=== PATIENT | male | born 2000 | race Caucasian/White ===

== ENCOUNTER 2021-04-23 13:55 | Emergency (ER) | payer OTHER ==
[~2021-04-23] VITALS: Ht 177.8 cm; Wt 84.0 kg
[2021-04-23 14:16] VITALS: BP 169/80
[2021-04-23] MEDS ORDERED: ONDANSETRON PF 4 MG/2 ML VIAL. IVP ONE (14:45)
[2021-04-23] MEDS ORDERED: ONDANSETRON ODT 4 MG TAB.RAPDIS PO ONE (15:00)
[2021-04-23] MEDS ORDERED: ONDANSETRON ODT 4 MG TAB.RAPDIS ONE (15:02)
[2021-04-23] MEDS ORDERED: HYDROcodone/APAP 5/325MG 1 TAB TABLET PO ONE (15:15)
--- NOTE | 2021-04-23 15:49 | PHYS DOC ---
Past History Past Surgical History: Other (JO ANN TORRES APRN) General Adult EDM: Chief Complaint: NAUSEA/VOMITING/DIARRHEA HPI: HPI: Patient is a 20-year-old male who presents with nausea, right side arm and leg pain. Patient states that the pain started on after he received his Covid vaccination. Patient denies change in sensation or strength. Denies fever. (JO ANN TORRES APRN) Review of Systems: Review of Systems: Constitutional: Denies fever or chills Eyes: Denies change in visual acuity HENT: Denies nasal congestion or sore throat Respiratory: Denies cough or shortness of breath Cardiovascular: Denies chest pain or edema GI: Denies abdominal pain, nausea, vomiting, bloody stools or diarrhea : Denies dysuria Musculoskeletal: Denies back pain or joint pain Integument: Denies rash Neurologic: Denies headache, focal weakness or sensory changes Endocrine: Denies polyuria or polydipsia Lymphatic: Denies swollen glands Psychiatric: Denies depression or anxiety (JO ANN TORRES APRN) Current Medications: Current Meds: Current Medications Medications (Trade) Dose Ordered Sig/[place] Start Time Stop Time Status Last Admin Dose Admin Acetaminophen/ Hydrocodone Bitart (Lortab 5/325) 1 tab 1X ONCE 04/23/21 15:15 04/23/21 15:16 DC 04/23/21 15:14 1 TAB Ondansetron HCl (Zofran Odt) 4 mg STK-MED ONCE 04/23/21 15:02 04/23/21 15:02 DC Ondansetron HCl (Zofran) 4 mg 1X ONCE 04/23/21 14:45 04/23/21 14:57 DC (JO ANN TORRES APRN) Allergies: Allergies: Allergies Coded Allergies Type Severity Reaction Last Updated Verified No Known Drug Allergies 04/23/21 No (JO ANN TORRES APRN) Physical Exam: PE: Constitutional: Well developed, well nourished, no acute distress, non-toxic appearance. [] HENT: Normocephalic, atraumatic, bilateral external ears normal, oropharynx moist, no oral exudates, nose normal. [] Eyes: PERRLA, EOMI, conjunctiva normal, no discharge. [] Neck: Normal range of motion, no tenderness, supple, no stridor. [] Cardiovascular:Heart rate regular rhythm, no murmur [] Lungs & Thorax: Bilateral breath sounds clear to auscultation [] Abdomen: Bowel sounds normal, soft, no tenderness, no masses, no pulsatile masses. [] Skin: Warm, dry, no erythema, no rash. [] Back: No tenderness, no CVA tenderness. [] Extremities: Left arm tenderness, no cyanosis, no clubbing, ROM intact, no edema. [] Neurologic: Alert and oriented X 3, normal motor function, normal sensory function, no focal deficits noted. [] Psychologic: Affect normal, judgement normal, mood normal. [] (JO ANN TORRES APRN) Current Patient Data: Vital Signs: Vital Signs Date Time Temp Pulse Resp B/P (MAP) Pulse Ox O2 Delivery O2 Flow Rate FiO2 04/23/21 15:14 16 97 04/23/21 14:16 98.2 74 169/80 (JO ANN TORRES APRN) EKG: EKG: [] (JO ANN TORRES APRN) Radiology/Procedures: Radiology/Procedures: [] (JO ANN TORRES APRN) Heart Score: C/O Chest Pain: No Risk Factors: Risk Factors: DM, Current or recent (<one month) smoker, HTN, HLP, family history of CAD, obesity. Risk Scores: Score 0 - 3: 2.5% MACE over next 6 weeks - Discharge Home Score 4 - 6: 20.3% MACE over next 6 weeks - Admit for Clinical Observation Score 7 - 10: 72.7% MACE over next 6 weeks - Early Invasive Strategies (JO ANN TORRES APRN) Course & Med Decision Making: Course & Med Decision Making Pertinent Labs and Imaging studies reviewed. (See chart for details) [] 20-year-old male presents with nausea and right-sided arm and leg tenderness after his vaccine on . Patient denies vomiting or diarrhea. Afebrile. NIH of 0. No change in sensation or strength of extremities. Patient states he has been taking ibuprofen and Tylenol. Discussed with patient that he needs to be taking ibuprofen and Tylenol every 6 hours. Patient given a Zofran here while in the ER and a hydrocodone to help with pain. Patient sent home with nausea medication. Advised patient to call PCP make a follow-up appointment if discomfort continues. Patient states that he understands. Patient is hemodynamically stable, alert and oriented upon disposition. (JO ANN TORRES APRN) Course & Med Decision Making I was the Attending physician on the above date of service of this patient. This patient was evaluated, examined, treated, and dispositioned from the emergency department by the mid-level practitioner. Although I was working at the time , no assistance was requested. Electronically signed, Bj Nesbitt DO (BJ NESBITT DO) Gera Disclaimer: Gera Disclaimer: This electronic medical record was generated, in whole or in part, using a voice recognition dictation system. (JO ANN TORRES APRN) Departure Departure: Impression: Primary Impression: Nausea Disposition: HOME / SELF CARE / HOMELESS Condition: STABLE Referrals: PCP,NO (PCP) Patient Instructions: Nausea, Adult, [id number] Additional Instructions: You were seen in the emergency room for nausea and right-sided arm and leg pain. Please start taking your ibuprofen and Tylenol at home for pain. Also sending you home with nausea medication. If nausea and pain continues please follow-up with your PCP. Return emergency room with worsening symptoms or concerns EMERGENCY DEPARTMENT GENERAL DISCHARGE INSTRUCTIONS Thank you for coming to [facility] (ED) today and trusting us with you care. We trust that you had a positivie experience in our Emergency Department. If you wish to speak to the department management, you may call the director at [phone]. YOUR FOLLOW UP INSTRUCTIONS ARE FOLLOWS: 1. Do you have a private Doctor? If you do not have a private doctor, please ask for a resource list of physicians or clinics that may be able to assist you with follow up care. 2. The Emergency Physician has interpreted your x-rays. The X-Ray specialist will also review them. If there is a change in the findings, you will be notified in 48 hours when at all possible. 3. A lab test or culture has been done, your results will be reviewed and you will be notified if you need a change in treatment. ADDITIONAL INSTRUCTIONS AND INFORMATION: 1. Your care today has been supervised by a physician who is specially trained in emergency care. Many problems require more than one evaluation for a complete diagnosis and treatment. We recommend that you schedule your follow up appointment as recommended to ensure complete treatment of you illness or injury. If you are unable to obtain follow up care and continue to have a problem, or if your condition worsens, we recommend that you return to the ED. 2. We are not able to safely determine your condition over the phone nor are we able to give sound medical advice over the phone. For these safety reasons, if you call for medical advice we will ask you to come to the ED for further evaluation. 3. If you have any questions regarding these discharge instructions please call the ED at [phone]. SAFETY INFORMATION: In the interest of safety, wellness, and injury prevention; we encourage you to wear your sealbelt, if you smoke; quite smoking, and we encourage family to use a protective helmet for bicycling and other sporting events that present an increased risk for head injury. IF YOUR SYMPTOMS WORSEN OR NEW SYMPTOMS DEVELOP, OR YOU HAVE CONCERNS ABOUT YOUR CONDITION; OR IF YOUR CONDITION WORSENS WHILE YOU ARE WAITING FOR YOUR FOLLOW UP APPOINTMENT; EITHER CONTACT YOUR PRIMARY CARE DOCTOR, THE PHYSICIAN WHOSE NAME AND NUMBER YOU WERE GIVEN, OR RETURN TO THE ED IMMEDIATELY. Scripts Ondansetron Hcl (ZOFRAN) 4 Mg Tablet 4 MG PO TID PRN PRN for NAUSEA, #9 TAB Prov: JO ANN TORRES APRN 04/23/21 JO ANN TORRES APRN Apr 23, 2021 15:48 JB NESBITT DO Apr 24, 2021 07:26
[2021-04-23] MEDS ORDERED: ONDA4TAB7 PO (15:54)
== END 2021-04-23 15:55 | disposition home or self-care (01) ==
LOC: ER 13:55
DX: R11.0 Nausea (principal); M79.601 Pain in right arm; M79.604 Pain in right leg; Z20.822 Contact with and (suspected) exposure to COVID-19
CPT/HCPCS: 99283; C9803; Q0162; U0003